=== PATIENT | male | born 1960 | race Caucasian/White ===

== ENCOUNTER 2020-08-04 15:49 | Outpatient (CLI) | payer OTHER ==
--- NOTE | 2020-08-04 16:46 | RAD ---
LEFT RIBS 3 VIEWS: Date: 08/04/2020 No fracture or area of bony destruction seen. All ribs appear intact. The lungs are clear. There is n o sign of pneumothorax or pleural effusion. The heart size is normal and the mediastinum appears norm al. IMPRESSION: No significant findings. POS: HOME
== END 2020-08-04 15:50 | disposition home or self-care (01) ==
LOC: BURRAD 15:49
PROVIDERS: ATTEND Physician Assistant
DX: R07.81 Pleurodynia (principal)

== ENCOUNTER 2021-02-06 10:33 | Outpatient (CLI) | payer OTHER | END 2021-02-06 10:34 | disposition home or self-care (01) | LOC: BURCT 10:33 | PROVIDERS: ATTEND Family Medicine | DX: R07.89 Other chest pain (principal); S20.212D Contusion of left front wall of thorax, subsequent encounter; R91.1 Solitary pulmonary nodule | CPT/HCPCS: 71250 ==